=== PATIENT | male | born 1940 | race Caucasian/White ===

== ENCOUNTER 2019-12-19 14:33 | Emergency (ER) | payer MEDICARE, OTHER ==
[~2019-12-19] VITALS: Ht 162.6 cm; Wt 75.5 kg
[2019-12-19 14:51] VITALS: TEMP 98.2
[2019-12-19 15:30] LABS: BASO % 0.5 % (0.0-2.0); EOS # 0.2 (0.0-0.7); EOS % 2.7 % (0-4.0); GRAN # 6.4 (1.4-6.5); GRAN % 73.5 % (42.2-75.2); HEMOGLOBIN 13.6 g/dl (13.5-18.0); LYMPH # 1.4 (1.2-3.4); LYMPH % 15.7 % (20.0-51.0); MEAN CELL VOLUME 93 fl (80.0-100.0); MEAN CORPUSCULAR HEMOGLOBIN 32 pg (27.0-31.0); MEAN CORPUSCULAR HGB CONC 34 g/dl (33.0-37.0); MEAN PLATELET VOLUME 11.4 fl (7.4-10.4); MONO # 0.6 (0.1-0.6); MONO % 6.8 % (1.7-9.3); PLATELET COUNT 207 K/mm3 (130-400); RED BLOOD COUNT 4.29 M/mm3 (4.20-5.60)
[2019-12-19] MEDS ORDERED: CENTRUM SILVER1 CTB PO (15:43)
[2019-12-19] MEDS ORDERED: PERIDEX (CHLOR480 ML MM (15:43)
[2019-12-19] MEDS ORDERED: CALCIUM 600/VIT1 CA1 PO (15:43)
[2019-12-19] MEDS ORDERED: CARDURA 2MG2 MG PO (15:44)
[2019-12-19] MEDS ORDERED: FLONASEALLERGY NS (15:44)
[2019-12-19] MEDS ORDERED: SYNTHROID0.088 MG/T PO (15:45)
[2019-12-19] MEDS ORDERED: GOOD SENSE LAC3000 U PO (15:45)
[2019-12-19] MEDS ORDERED: DESYREL 50MG50 MG PO (15:46)
[2019-12-19] MEDS ORDERED: ZOCOR 40MG40 MG PO (15:46)
[2019-12-19] MEDS ORDERED: COZAAR 50MG50 MG/TAB PO (15:46)
[2019-12-19 16:10] LABS: INR 1.1 (0.8-3.0); PROTHROMBIN TIME 13.1 SECONDS (9.7-12.8)
[2019-12-19 16:25] LABS: CALCIUM 8.7 mg/dL (8.4-10.2); CREATININE, serum 0.83 (0.66-1.25); TOTAL PROTEIN 6.5 gm/dL (6.4-8.2)
[2019-12-19 16:42] VITALS: BP 131/70; PULSE 57
== END 2019-12-19 16:42 | disposition home or self-care (01) ==
LOC: COL.ER 14:33
PROVIDERS: Family Medicine
DX: H53.9 Unspecified visual disturbance (principal); I10 Essential (primary) hypertension; Z79.51 Long term (current) use of inhaled steroids